=== PATIENT | male | born 1950 | race Caucasian/White ===

== ENCOUNTER 2017-04-04 19:06 | Emergency (ER) | payer OTHER ==
[~2017-04-04] VITALS: Ht 165.1 cm; Wt 66.5 kg
[~2017-04-04 19:06] MED LIST: ALBU8.5H3 INH; ASPI81TA3 PO; FLUC200T36 PO; LEVO500T72 PO; NICO-523 TRANSDERM; OMEP20CA16 PO; TAMS-14 PO
[2017-04-04 19:20] VITALS: Ht 165.1 cm; Wt 66.5 kg
[2017-04-04] MEDS ORDERED: HYDR-3011 PO (19:28)
[2017-04-04] MEDS ORDERED: TR1B60 TOP (19:28)
--- NOTE | 2017-04-04 19:37 | ERD ---
ER Documentation Chief Complaint Date/Time DATE: 04/04/17 TIME: 19:33 Chief Complaint rash/dryness bilateral arms from cement HPI 66-year-old male presents to emergency department for complaints of bilateral arm dryness rash and itching for years now, worst today. Patient also has it in the antecubital folds. Patient denies any fever or chills. Patient did not take any medications to help with symptoms. ROS All systems reviewed and are negative except as per history of present illness. Medications Home Meds Active Scripts Hydroxyzine Hcl* (Hydroxyzine Hcl*) 25 Mg Tablet, 25 MG PO Q8H Y for ITCHING, # 30 TAB Prov:JESSE GALVAN FOLDER TAPER OPERATOR 04/04/17 Triamcinolone Acetonide (Triamcinolone Acetonide) 0.1% - 60 Ml Lotion, 1 APPLIC TOP BID, #1 BOTTLE Prov:JESSE GALVAN FOLDER TAPER OPERATOR 04/04/17 Levofloxacin* (Levaquin*) 500 Mg Tablet, 500 MG PO DAILY, #5 TAB Prov:ARA CHAN 12/16/15 Nicotine* (Nicoderm* Patch) 1 Patch Patch, 1 PATCH TRANSDERM DAILY for 30 Days, PATCH Prov:ARA CHAN 12/16/15 Fluconazole* (Diflucan*) 200 Mg Tab, 200 MG PO DAILY, #7 TAB Prov:ARA CHAN 12/16/15 Tamsulosin Hcl* (Flomax*) 0.4 Mg Capsr, 0.4 MG PO HS, #30 CAP Prov:ARA CHAN 12/16/15 Reported Medications Aspirin* (Aspirin* Chew) 81 Mg Tab.chew, 81 MG PO DAILY, TAB.CHEW 12/10/15 Omeprazole* (Omeprazole*) 20 Mg Capsule.dr, 20 MG PO DAILY, #30 CAP 12/10/15 Albuterol Sulfate* (Proair HFA*) 8.5 Gm Hfa.aer.ad, 2 PUFF INH Q4H Y for WHEEZING AND SOB, #1 INHALER 12/10/15 Allergies Allergies: Coded Allergies: No Known Allergy (Unverified , 12/10/15) PMhx/Soc History of Surgery: Yes (skin disease and skin flap 2012, and hernia) Anesthesia Reaction: No Hx Neurological Disorder: No Hx Respiratory Disorders: Yes (right lung problem/ collapsed) Hx Cardiac Disorders: No Hx Psychiatric Problems: No Hx Miscellaneous Medical Probl: Yes (HEMRRHOIDS) Hx Alcohol Use: No Hx Substance Use: No Hx Tobacco Use: No FmHx Family History: No coronary disease, No diabetes, No other Physical Exam Vitals Vital Signs Date Time Temp Pulse Resp B/P Pulse Ox O2 Delivery O2 Flow Rate FiO2 04/04/17 19:20 97.5 92 20 132/75 100 Physical Exam GENERAL: The patient is well developed and appropriate for usual state of health, in no apparent distress. CHEST: Clear to auscultation bilaterally. There are no rales, wheezes or rhonchi. HEART: Regular rate and rhythm. No murmurs, clicks, rubs or gallops. No S3 or S4. ABDOMEN: Soft, nontender and nondistended. Good bowel sounds. No rebound or guarding. No gross peritonitis. No gross organomegaly or masses. No Garner sign or McBurney point tenderness. BACK: No midline or flank tenderness. EXTREMITIES: Equal pulses bilaterally. There is no peripheral clubbing, cyanosis or edema. No focal swelling or erythema. Full range of motion. Grossly neurovascularly intact. NEURO: Alert and oriented. Cranial nerves 2-12 intact. Motor strength in all 4 extremities with 5/5 strength. Sensation grossly intact. Normal speech and gait. SKIN: Noted dryness of the skin, plaques in the upper extremities. There is no apparent ecchymosis or petechia. The skin is warm and dry. HEMATOLOGIC AND LYMPHATIC: There is no evidence of excessive bruising or lymphedema. No gross cervical, axillary, or inguinal lymphadenopathy. Procedures/MDM Medical decision making: Patient's symptoms is likely consistent with eczema. No symptoms of any contagious rash at this time. No symptoms of sepsis at this time. No symptoms of any coagulopathies. No symptoms of any acute bacterial infection. Prescription was given for triamcinolone 1% cream, hydroxyzine, is advised to see epoxy specialist for further evaluation. Patient was advised to return to emergency department for any worsening symptoms Physician: Zoran. Stable. Departure Diagnosis: Primary Impression: Eczema Eczema type: unspecified Qualified Code: L30.9 - Eczema, unspecified type Condition: Stable Patient Instructions: Atopic Dermatitis (Eczema) [facility] Usted se polo hecho un examen mdico de control que le indica que no est en carlee condicin que requiera tratamiento urgente en el Departamento de Emergencia. Un estudio ms profundo y el tratamiento de olmedo condicin pueden esperar sin ningn riesgo hasta que usted sea atendida/o en el consultorio de olmedo mdico o carlee cl reese. Es responsabilidad suya arreglar carlee hanna para el seguimiento del tequila. MANEJO DE CONDICIONES NO URGENTES EN EL FUTURO 1) Si usted tiene un mdico de atencin primaria: Usted debera llamar a olmedo mdico de atencin primaria antes de venir al departamento de emergencia. Despus de las horas de consultorio, olmedo doctor o olmedo asociado/a est disponible por telfono. El mdico o enfermero de hammad en el servicio telefnico puede asesorarle por sunny medio para atender el problema, o tequila contrario se puede programar carlee hanna. 2) Si usted no tiene un mdico de atencin primaria: Llame al mdico o clnica de referencia que aparece abajo haile las horas de consultorio para hacer carlee hanna para que le vean. CLINICAS: [facility] [phone] [facility] [phone] [facility] [phone] [facility] [facility] [phone] [facility] [place] [phone] [facility]. [phone] [address] [facility]. [facility] ([place]) Usted se polo hecho un examen mdico de control que le indica que no est en carlee condicin que requiera tratamiento urgente en el Departamento de Emergencia. Un estudio ms profundo y el tratamiento de olmedo condicin pueden esperar sin ningn riesgo hasta que usted sea atendida/o en el consultorio de olmedo mdico o carlee cl reese. Es responsabilidad suya arreglar carlee hanna para el seguimiento del tequila. MANEJO DE CONDICIONES NO URGENTES EN EL FUTURO 1) Si usted tiene un mdico de atencin primaria: Usted debera llamar a olmedo mdico de atencin primaria antes de venir al departamento de emergencia. Despus de las horas de consultorio, olmedo doctor o olmedo asociado/a est disponible por telfono. El mdico o enfermero de hammad en el servicio telefnico puede asesorarle por sunny medio para atender el problema, o tequila contrario se puede programar carlee hanna. 2) Si usted no tiene un mdico de atencin primaria: Llame al mdico o condado institucions de referencia que aparece abajo haile las horas de consultorio para hacer carlee hanna para que le vean. SI USTED NO PUEDE PAGAR PARA [place] UN MEDICO puede ir a: [facility] [id number] [place] [address] [facility] [address] [place] [address] [facility] [address] [place] [address] [facility] [address] [place], [place] [id number] CUISIA,JESSE Fitzgerald NP Apr 04, 2017 19:37
== END 2017-04-04 19:30 | disposition home or self-care (01) ==
LOC: E/R 19:06
DX: L30.9 Dermatitis, unspecified (principal); Z79.82 Long term (current) use of aspirin
CPT/HCPCS: 99284

== ENCOUNTER 2017-10-04 15:39 | Inpatient (IN) | payer OTHER ==
[~2017-10-04] VITALS: Ht 170.2 cm; Wt 69.3 kg
[~2017-10-04 15:39] MED LIST changes: +HYDR-3011 PO; +TR1B60 TOP
[2017-10-04] MEDS ORDERED: SUCR1TAB56 PO (20:03)
[2017-10-04] MEDS ORDERED: MONT10TA24 PO (20:03)
[2017-10-04] MEDS ORDERED: FLUT1AER INHALATION (20:04)
--- NOTE | 2017-10-04 20:07 | ERD ---
ER Documentation Chief Complaint Chief Complaint cough x 3 days h/o rt lung surgery HPI This is a 67-year-old male with a past medical history of COPD, history of pneumothorax several years ago requiring chest tube placement, GERD, BPH who is presenting with a cough and congestion for 3 days. The patient sounds very congested, but he does not endorse a productive cough. He has not had any sputum production. He does endorse subjective fever and chills at home. He reports generalized body aches as well. The patient has had no headache or vision changes. The patient does not endorse neck or back pain. The patient denies lightheadedness or dizziness. The patient has had no chest pain. The patient denies nausea or vomiting. The patient denies abdominal pain or changes to bowel movements or urination. The patient has had no focal deficits. The patient has had no weakness or numbness or tingling to the face or extremities. ROS All systems reviewed and are negative except as per history of present illness. Medications Home Meds Active Scripts Tamsulosin Hcl* (Flomax*) 0.4 Mg Capsr, 0.4 MG PO HS, #30 CAP Prov:ARA CHAN 12/16/15 Reported Medications Fluticasone-Vilanterol (Breo Ellipta Inhaler) 100-25 Mcg/Actuation Aer.pow.ba, 1 PUFF INHALATION DAILY, #1 INHALER 10/04/17 Montelukast Sodium* (Montelukast Sodium*) 10 Mg Tablet, 10 MG PO QHS, #30 TAB 10/04/17 Sucralfate* (Carafate*) 1 Gm Tab, 1 GM PO BID, TAB 10/04/17 Discontinued Reported Medications Aspirin* (Aspirin* Chew) 81 Mg Tab.chew, 81 MG PO DAILY, TAB.CHEW 12/10/15 Omeprazole* (Omeprazole*) 20 Mg Capsule.dr, 20 MG PO DAILY, #30 CAP 12/10/15 Albuterol Sulfate* (Proair HFA*) 8.5 Gm Hfa.aer.ad, 2 PUFF INH Q4H Y for WHEEZING AND SOB, #1 INHALER 12/10/15 Discontinued Scripts Hydroxyzine Hcl* (Hydroxyzine Hcl*) 25 Mg Tablet, 25 MG PO Q8H Y for ITCHING, # 30 TAB Prov:JESSE GALVAN NP 04/04/17 Triamcinolone Acetonide (Triamcinolone Acetonide) 0.1% - 60 Ml Lotion, 1 APPLIC TOP BID, #1 BOTTLE Prov:ADELADALEJESSE JUAN NP 04/04/17 Levofloxacin* (Levaquin*) 500 Mg Tablet, 500 MG PO DAILY, #5 TAB Prov:REALCHRISTOSTEMITOPEARA 12/16/15 Nicotine* (Nicoderm* Patch) 1 Patch Patch, 1 PATCH TRANSDERM DAILY for 30 Days, PATCH Prov:REALCHRISTOSTEMITOPEARA 12/16/15 Fluconazole* (Diflucan*) 200 Mg Tab, 200 MG PO DAILY, #7 TAB Prov:REALCHRISTOSTEMITOPEJOSHUAARA 12/16/15 Allergies Allergies: Coded Allergies: No Known Allergy (Unverified , 10/04/17) PMhx/Soc History of Surgery: Yes (skin disease and skin flap 2012, and hernia) Anesthesia Reaction: No Hx Neurological Disorder: No Hx Respiratory Disorders: Yes (right lung problem/ collapsed) Hx Cardiac Disorders: No Hx Psychiatric Problems: No Hx Miscellaneous Medical Probl: Yes (HEMORRHOIDS) Hx Alcohol Use: No Hx Substance Use: No Hx Tobacco Use: Yes (5 cigarette a day) Smoking Status: Current every day smoker FmHx Family History: No coronary disease, No diabetes Physical Exam Vitals Vital Signs Date Time Temp Pulse Resp B/P Pulse Ox O2 Delivery O2 Flow Rate FiO2 10/04/17 21:00 98.1 90 24 120/57 86 Room Air 10/04/17 20:36 84 24 93 21 10/04/17 20:26 Nasal Cannula 2 10/04/17 19:47 97.6 76 22 110/54 94 Room Air 10/04/17 15:46 98.0 81 18 109/52 94 Physical Exam Const: No apparent distress, well-developed, well-nourished Head: Normocephalic, Atraumatic Eyes: Normal Conjunctiva. Extraocular movements intact. Pupils equal, round and reactive to light ENT: Normal External Ears, Nose and Mouth. Neck: Full range of motion. No meningismus. Resp: Bilateral diffuse wheezes, tachypnea, hypoxic to 88% on room air, no rales or rhonchi Cardio: Regular rate and rhythm. No murmurs, rubs or gallops Abd: Soft, non tender, non distended. Normal bowel sounds Skin: No petechiae or rashes Back: No midline tenderness. No CVA tenderness Ext: No cyanosis, or edema Neur: Awake and alert, oriented 4. Cranial nerves intact. No facial droop. Normal strength, sensation and coordination. Psych: Normal Mood and Affect Result Diagram: 10/04/17202410/04/172024 Results 24 hrs Laboratory Tests Test 10/04/17 20:25 White Blood Count 8.610^3/ul Red Blood Count 4.4610^6/ul Hemoglobin 12.6g/dl Hematocrit 37.8% Mean Corpuscular Volume 84.8fl Mean Corpuscular Hemoglobin 28.3pg Mean Corpuscular Hemoglobin Concent 33.3g/dl Red Cell Distribution Width 13.8% Platelet Count 80470^3/UL Mean Platelet Volume 10.0fl Neutrophils % 78.7% Lymphocytes % 14.0% Monocytes % 5.3% Eosinophils % 1.1% Basophils % 0.4% Nucleated Red Blood Cells % 0.0/100WBC Neutrophils # 6.810^3/ul Lymphocytes # 1.210^3/ul Monocytes # 0.510^3/ul Eosinophils # 0.110^3/ul Basophils # 0.010^3/ul Nucleated Red Blood Cells # 0.010^3/ul Prothrombin Time 14.1Sec Prothrombin Time Ratio 1.1 INR International Normalized Ratio 1.08 Activated Partial Thromboplast Time 60.8Sec Sodium Level 136mmol/L Potassium Level 3.6mmol/L Chloride Level 103mmol/L Carbon Dioxide Level 25mmol/L Anion Gap 12 Blood Urea Nitrogen 13mg/dl Creatinine 0.88mg/dl Glucose Level 114mg/dl Calcium Level 8.4mg/dl Troponin I < 0.012ng/ml Current Medications Medications (Trade) Dose Ordered Sig/Ant Route PRN Reason Start Time Stop Time Status Last Admin Dose Admin Sodium Chloride (NS) 1,000 ml @ 1,000 mls/hr Q1H STAT IV 10/04/17 20:21 10/04/17 21:20 DC 10/04/17 20:33 Ipratropium Jenn[place] (Atrovent 0.02% (Neb)) 1.5 mg ONCE STAT INH 10/04/17 20:21 10/04/17 20:23 DC 10/04/17 20:36 Albuterol (Proventil 0.5% (Neb)) 15 mg ONCE STAT INH 10/04/17 20:21 10/04/17 20:23 DC 10/04/17 20:36 Methylprednisolone Sodium Succinate 125 mg 125 mg ONCE STAT IV 10/04/17 20:21 10/04/17 20:23 DC 10/04/17 20:32 Levofloxacin/ Dextrose (Levaquin 750 Mg/ D5W 150 ml (Pmx)) 150 ml @ 100 mls/hr ONCE STAT IVPB 10/04/17 22:35 10/05/17 00:04 10/04/17 22:53 Procedures/MDM MDM The patient's presentation warrants further investigation. I am concerned of a COPD exacerbation with a possible infectious etiology. This will need to be further evaluated. The patient does have bilateral breath sounds, and I have less suspicion for pneumothorax. I have higher suspicion for COPD exacerbation and pneumonia over a PE. The patient does not endorse chest pain, and I have less suspicion for acute coronary syndrome. The patient does not have symptoms of pericarditis or pericardial effusion. I do not hear decreased breath sounds at the bases, and I have decreased suspicion for pleural effusion. Pulmonary edema is a possibility, the patient does not have heart failure and I hear wheezes on exam of the posterior rales. The patient does not have signs or symptoms of esophageal tear or perforation. I have decreased suspicion for thoracic aortic aneurysm or rupture or dissection. LABS The patient's blood work was obtained and reviewed. The patient's CBC shows no leukocytosis and no left shift. The patient is afebrile and does not appear systemically ill. I do not suspect a systemic infection, and I do not suspect sepsis, but this does not decrease my suspicion of an infectious etiology of his symptoms based on his overall presentation. The patient is mildly anemic today, but this does not need to be emergently treated. The patient's platelet count is unremarkable. The patient's CMP shows no signs of metabolic or electrolyte emergencies. The patient has unremarkable renal and hepatic function testing. The patient's troponin is negative. The patient's INR is unremarkable. EKG EKG read by me: Rate/Rhythm: Regular rate and rhythm at a rate of 85 beats per minute Intervals: Normal [place]: Normal Impression: No evidence of ischemia or arrhythmia IMAGING CXR FINDINGS: Heart is not enlarged. Mediastinum is not widened. No hilar masses seen. There are diffuse increased interstitial and fine reticular nodular lung markings. No effusion or pneumothorax is seen. IMPRESSION: Question interstitial pneumonia versus interstitial edema. Electronically viewed and signed by .Semaj Muro MD, MD on 10/04/2017 21: 24 TREATMENT/DISPOSITION I am concerned of interstitial pneumonia given his presentation. I suspect a COPD exacerbation. The patient was given Levaquin in the emergency department. He was also given nebulized albuterol and ipratropium in addition to Solu- Medrol. [place] through assessment, the patient was evaluated off oxygen. He desaturated to 86%. He is not on oxygen at home, and I do find this to be concerning and something that warrants inpatient evaluation and management. At this time, I feel that the patient requires admission for further evaluation and management. The patient will be admitted to Panel in accordance with the patient's insurance. The patient was accepted by Dr. Rees at 12:05AM on October 05, 2017. Disclaimer: Inadvertent spelling and grammatical errors are likely due to EHR/ dictation software use and do not reflect on the overall quality of patient care. Note that the electronic time recorded on this note does not necessarily reflect the actual time of the patient encounter. Departure Diagnosis: Primary Impression: Interstitial pneumonia Additional Impressions: Cough COPD exacerbation Hypoxia Anemia Anemia type: unspecified type Qualified Code: D64.9 - Anemia, unspecified type Condition: CHUCK Johnson MD Oct 04, 2017 20:07
[2017-10-04] MEDS ORDERED: IPRATROPIUM (NEB) 0.5 MG/2.5 ML AMP INH STA (20:21)
[2017-10-04] MEDS ORDERED: SOD CHLORIDE 0.9% 1,000 ML IV STA (20:21)
[2017-10-04] MEDS ORDERED: METHYLPREDNISOLONE 125 MG INJ IV STA (20:21)
[2017-10-04] MEDS ORDERED: ALBUTEROL 0.5% (NEB) 2.5 MG/0.5 ML AMP INH STA (20:21)
[2017-10-04 20:39] LABS: BASOPHILS % 0.4 % (0.0-2.0); EOSINOPHILS # 0.1 10^3/ul (0.0-0.5); EOSINOPHILS % 1.1 % (0.0-7.0); HEMATOCRIT 37.8 % (42.0-52.0); HEMOGLOBIN 12.6 g/dl (14.0-18.0); LYMPHOCYTES # 1.2 10^3/ul (0.8-2.9); MEAN CORPUSCULAR HEMOGLOBIN 28.3 pg (29.0-33.0); MEAN CORPUSCULAR HGB CONC 33.3 g/dl (32.0-37.0); MEAN CORPUSCULAR VOLUME 84.8 fl (82.0-101.0); MONOCYTE # 0.5 10^3/ul (0.3-0.9); MONOCYTES % 5.3 % (0.0-11.0); NEUTROPHIL # 6.8 10^3/ul (1.6-7.5); NEUTROPHILS % 78.7 % (39.0-77.0); PLATELET COUNT 202 10^3/UL (140-415); RED BLOOD COUNT 4.46 10^6/ul (4.70-6.10); RED CELL DISTRIBUTION WIDTH 13.8 % (11.5-14.5); WHITE BLOOD COUNT 8.6 10^3/ul (4.8-10.8)
[2017-10-04 21:02] LABS: INR 1.08; PROTIME 14.1 Sec (11.9-14.9); PT RATIO 1.1
[2017-10-04 21:04] LABS: ANION GAP 12 (8-16); BLOOD UREA NITROGEN 13 mg/dl (7-20); CALCIUM 8.4 mg/dl (8.4-10.2); CARBON DIOXIDE 25 mmol/L (21-31); CHLORIDE 103 mmol/L (97-110); CREATININE 0.88 mg/dl (0.61-1.24); GLUCOSE 114 mg/dl (70-220); PARTIAL THROMBOPLASTIN TIME 60.8 Sec (25.0-35.0); POTASSIUM 3.6 mmol/L (3.5-5.1); SODIUM 136 mmol/L (135-144)
[2017-10-04 21:19] LABS: TROPONIN-I < 0.012 ng/ml (0.00-0.12)
--- NOTE | 2017-10-04 21:24 | RADRPT ---
PROCEDURE: XR Chest. CLINICAL INDICATION: Shortness of breath TECHNIQUE: Frontal chest x-ray was obtained. COMPARISON: Chest x-ray December 15, 2015 FINDINGS: Heart is not enlarged. Mediastinum is not widened. No hilar masses seen. There are diffuse increased interstitial and fine reticular nodular lung markings. No effusion or pneumothorax is seen. IMPRESSION: Question interstitial pneumonia versus interstitial edema. .Semaj Muro MD, MD Date Time Electronically viewed and signed by .Semaj Muro MD, on 10/04/2017 21:24 .A/
[2017-10-04] MEDS ORDERED: LEVOFLOXACIN 750MG/D5W (PMX) 150 ML IVPB STA (22:35)
[2017-10-05] MEDS ORDERED: ACETAMINOPHEN 325 MG TAB PO PRN ×2 (00:30→06:00)
[2017-10-05] MEDS ORDERED: ONDANSETRON 4 MG INJ IV PRN ×2 (00:30→06:00)
[2017-10-05] MEDS ORDERED: morphine 2 MG INJ IV PRN (06:00)
[2017-10-05] MEDS ORDERED: ALBUTEROL/IPRATROPIUM (NEB) 3 ML AMP HHN PRN (06:00)
[2017-10-05] MEDS ORDERED: NACL 0.9% 3 ML SYG IV SCH (06:00)
[2017-10-05 07:00] VITALS: TEMP 98.3
--- NOTE | 2017-10-05 08:55 | HP ---
Date/Time of Note Date/Time of Note DATE: 10/05/17 TIME: 08:48 Assessment/Plan VTE Prophylaxis VTE Prophylaxis Intervention: heparin Assessment/Plan Assessment/Plan 1. COPD exacerbation, was likely early developing pneumonia vs URI -Supplemental oxygen, bronchodilators, steroid and IV antibiotic -Will order respiratory culture 2. Shortness of breath, most likely secondary to above -Will check a 2D echo to evaluate for possible CHF otherwise see #1 for plan of care 3. Nicotine dependence -Advised about smoking cessation -Nicotine patch while in-house HPI/ROS Admit Date/Time Admit Date/Time Hx of Present Illness This is a 67-year-old male with history of COPD, hemothorax, recurrent pneumonia , nicotine dependence who presented to the ER complaining of shortness of breath and cough 3 days. He said the symptoms started about 3 days ago and has been progressively getting worse. He denied chest pain, fever/chills, nausea/vomiting, abdominal pain or urinary symptoms. He said he ran out of his inhalers for quite some time now and was unable to use them in the last 3 days. When he presented to the ER, chest x-ray showed Questionable interstitial pneumonia versus interstitial edema. Influenza A and B were negative. Labs shows a hemoglobin of 12.6 otherwise CBC and BMP within normal limits PMH/Family/Social Social History Smoking Status: Current every day smoker Exam/Review of Systems Vital Signs Vitals Vital Signs Date Time Temp Pulse Resp B/P Pulse Ox O2 Delivery O2 Flow Rate FiO2 10/05/17 07:00 98.3 61 20 100/60 96 Nasal Cannula 2.0 10/04/17 20:36 21 Exam Constitutional: alert, oriented, well developed Head: atraumatic, normocephalic Eyes: EOMI, PERRL Respiratory: other (Minimally decreased breath sounds at the bases bilaterally) Cardiovascular: nl pulses, regular rate and rhythm Gastrointestinal: non-tender, soft Extremities: normal pulses Labs Result Diagram: 10/04/17202410/04/172024 Medications Medications Current Medications Ondansetron HCl (Zofran Inj) 4 mg Q6H PRN IV NAUSEA AND/OR VOMITING; Start at 06:00 Acetaminophen (Tylenol Tab) 650 mg Q6H PRN PO PAIN LEVEL 1-3 OR FEVER; Start 10/05/17 at 06:00 Morphine Sulfate (morphine) 2 mg Q4H PRN IV SEVERE PAIN LEVEL 7-10; Start at 06:00 Enoxaparin Sodium (Lovenox) 40 mg DAILY SC ; Start 10/05/17 at 09:00 Montelukast Sodium (Singulair) 10 mg QHS PO ; Start 10/05/17 at 21:00 Sucralfate (Carafate) 1 gm BID PO ; Start 10/05/17 at 09:00 Tamsulosin HCl (Flomax) 0.4 mg HS PO ; Start 10/05/17 at 21:00 Miscellaneous Information 1 puff 1 puff DAILY INHALATION ; Start 10/05/17 at 09 :00; Status UNV Levofloxacin/ Dextrose (Levaquin 500mg/ D5W 100 ml (Pmx)) 100 ml @ 100 mls/hr DAILY IVPB ; Start 10/05/17 at 09:00 ZIA ALLRED MD Oct 05, 2017 08:55
[2017-10-05] MEDS ORDERED: NON-FORMULARY/PATIENT OWN MED (Fluticasone-Vilanterol (Breo Ellipta Inhaler) 1 PUFF) INHALATION SCH (09:00)
[2017-10-05] MEDS ORDERED: METHYLPREDNISOLONE 125 MG INJ IV SCH (09:00)
[2017-10-05 09:21] LABS: HEMATOCRIT 35.8 % (42.0-52.0); LYMPHOCYTES # 0.6 10^3/ul (0.8-2.9); MEAN CORPUSCULAR HEMOGLOBIN 28.4 pg (29.0-33.0); MEAN CORPUSCULAR HGB CONC 33.5 g/dl (32.0-37.0); MEAN CORPUSCULAR VOLUME 84.6 fl (82.0-101.0); MONOCYTE # 0.2 10^3/ul (0.3-0.9); MONOCYTES % 2.5 % (0.0-11.0); NEUTROPHIL # 6.1 10^3/ul (1.6-7.5); NEUTROPHILS % 88.1 % (39.0-77.0); PLATELET COUNT 192 10^3/UL (140-415); RED BLOOD COUNT 4.23 10^6/ul (4.70-6.10); RED CELL DISTRIBUTION WIDTH 14.1 % (11.5-14.5); WHITE BLOOD COUNT 6.9 10^3/ul (4.8-10.8)
[2017-10-05] MEDS: LEVOFLOXACIN 500MG/D5W (PMX) 100 ML IVPB SCH (09:46)
[2017-10-05] MEDS: ENOXAPARIN 40 MG/0.4 ML SYG SC SCH (09:46)
[2017-10-05] MEDS: SUCRALFATE 1 GM TAB PO SCH ×2 (09:47→21:46)
[2017-10-05 09:51] LABS: ALBUMIN 3.2 g/dl (3.3-4.9); ALBUMIN/GLOBULIN RATIO 0.96; BILIRUBIN,INDIRECT 0.1 mg/dl (0-1.1); BILIRUBIN,TOTAL 0.1 mg/dl (0.2-1.3); CALCIUM 8.6 mg/dl (8.4-10.2); CREATININE 0.72 mg/dl (0.61-1.24); MAGNESIUM 1.9 mg/dl (1.7-2.5); PHOSPHORUS 4.7 mg/dl (2.5-4.9); POTASSIUM 4.3 mmol/L (3.5-5.1); TOTAL PROTEIN 6.5 g/dl (6.1-8.1)
[2017-10-05 12:12] VITALS: Ht 170.2 cm; Wt 69.3 kg
[2017-10-05 12:17] VITALS: BP 115/57; PULSE 62; RESP 20
[2017-10-05] MEDS ORDERED: FUROSEMIDE 20 MG INJ IV ONE (13:00)
--- NOTE | 2017-10-05 13:01 | PN ---
Date/Time of Note Date/Time of Note DATE: 10/05/17 TIME: 13:01 Assessment/Plan VTE Prophylaxis VTE Prophylaxis Intervention: ambulation, SCD's Assessment/Plan Chief Complaint/Hosp Course Subjective Patient still has cough, however feeling better Objective Physical exam General: Patient is laying in bed and answers questions appropriately Mentation: Patient is alert and oriented 4, Head: Normocephalic atraumatic Eyes: EOMI, pupils reactive to light Neck: Supple, nontender, midline Respiratory: Coarse to auscultation bilaterally Cardiovascular: regular rate, no obvious murmurs Gastrointestinal: non-tender to palpation, bowel sounds heard. Neurological: Moves all extremities spontaneously Skin: No new skin lesions Assessment and plan Shortness of breath and cough -Likely COPD exacerbation versus CHF versus early pneumonia -Antibiotics and duo nebs with steroids -BNP mildly elevated, will obtain echocardiogram and give one-time Lasix, patient has no apparent history of CHF COPD exacerbation -Although might be might multifactorial, COPD exacerbation with patient running out of inhalers likely contributes Nicotine dependence -Nicotine patch as needed Medical noncompliance -Continue home meds as needed Anemia -Mild, monitor for now Disposition -Follow-up with echocardiogram, continue steroids, continue antibiotics Problems: Exam/Review of Systems Vital Signs Vitals Vital Signs Date Time Temp Pulse Resp B/P Pulse Ox O2 Delivery O2 Flow Rate FiO2 10/05/17 12:17 97.3 62 20 115/57 92 Nasal Cannula 10/05/17 10:42 2.0 10/04/17 20:36 21 Results Result Diagram: 10/05/17 0910 10/05/17 0910 Results 24 hrs Laboratory Tests Test 10/04/17 20:25 10/05/17 09:10 White Blood Count 8.6 # 6.9 Red Blood Count 4.46 L 4.23 L Hemoglobin 12.6 L 12.0 L Hematocrit 37.8 L 35.8 L Mean Corpuscular Volume 84.8 84.6 Mean Corpuscular Hemoglobin 28.3 L 28.4 L Mean Corpuscular Hemoglobin Concent 33.3 33.5 Red Cell Distribution Width 13.8 14.1 Platelet Count 202 192 Mean Platelet Volume 10.0 10.0 Neutrophils % 78.7 H 88.1 H Lymphocytes % 14.0 L 9.0 L Monocytes % 5.3 2.5 Eosinophils % 1.1 0.0 Basophils % 0.4 0.0 Nucleated Red Blood Cells % 0.0 0.0 Neutrophils # 6.8 6.1 Lymphocytes # 1.2 0.6 L Monocytes # 0.5 0.2 L Eosinophils # 0.1 0.0 Basophils # 0.0 0.0 Nucleated Red Blood Cells # 0.0 0.0 Prothrombin Time 14.1 Prothrombin Time Ratio 1.1 INR International Normalized Ratio 1.08 Activated Partial Thromboplast Time 60.8 H Sodium Level 136 140 Potassium Level 3.6 4.3 Chloride Level 103 108 Carbon Dioxide Level 25 23 Anion Gap 12 13 Blood Urea Nitrogen 13 12 Creatinine 0.88 0.72 Glucose Level 114 122 Calcium Level 8.4 8.6 Troponin I < 0.012 Phosphorus Level 4.7 Magnesium Level 1.9 Total Bilirubin 0.1 L Direct Bilirubin 0.00 Indirect Bilirubin 0.1 Aspartate Amino Transf (AST/SGOT) 48 H Alanine Aminotransferase (ALT/SGPT) 31 Alkaline Phosphatase 69 B-Type Natriuretic Peptide 666 H Total Protein 6.5 Albumin 3.2 L Globulin 3.30 H Albumin/Globulin Ratio 0.96 Medications Medications Current Medications Ondansetron HCl (Zofran Inj) 4 mg Q6H PRN IV NAUSEA AND/OR VOMITING; Start at 06:00 Acetaminophen (Tylenol Tab) 650 mg Q6H PRN PO PAIN LEVEL 1-3 OR FEVER; Start 10/05/17 at 06:00 Morphine Sulfate (morphine) 2 mg Q4H PRN IV SEVERE PAIN LEVEL 7-10; Start at 06:00 Enoxaparin Sodium (Lovenox) 40 mg DAILY SC Last administered on 10/05/17 09: 46; Admin Dose 40 MG; Start 10/05/17 at 09:00 Montelukast Sodium (Singulair) 10 mg QHS PO ; Start 10/05/17 at 21:00 Sucralfate (Carafate) 1 gm BID PO Last administered on 10/05/17 09:47; Admin Dose 1 GM; Start 10/05/17 at 09:00 Tamsulosin HCl (Flomax) 0.4 mg HS PO ; Start 10/05/17 at 21:00 Miscellaneous Information 1 puff 1 puff DAILY INHALATION ; Start 10/05/17 at 09 :00; Status UNV Levofloxacin/ Dextrose (Levaquin 500mg/ D5W 100 ml (Pmx)) 100 ml @ 100 mls/hr DAILY IVPB Last administered on 10/05/17t 09:46; Admin Dose 100 MLS/HR; Start 10/05/17 at 09:00 Methylprednisolone Sodium Succinate (Solu-Medrol) 60 mg Q6 IV ; Start 10/05/17 at 12:00 Furosemide (Lasix) 20 mg ONCE ONCE IV ; Start 10/05/17 at 13:00; Stop at 13:01; Status UNV BRIDGETT MONROY Oct 05, 2017 13:01
[2017-10-05] MEDS: ALBUTEROL/IPRATROPIUM (NEB) 3 ML AMP HHN SCH ×2 (14:52→20:29)
[2017-10-05] MEDS: METHYLPREDNISOLONE 125 MG INJ IV SCH ×3 (15:04→21:47)
[2017-10-05 19:45] VITALS: BP 95/51; PULSE 68; RESP 20
[2017-10-05] MEDS: TAMSULOSIN (SR) 0.4 MG CAP PO SCH (21:46)
[2017-10-05] MEDS: MONTELUKAST 10 MG TAB PO SCH (21:46)
[2017-10-05 23:21] VITALS: BP 105/58; PULSE 64; RESP 20
[2017-10-06] MEDS: METHYLPREDNISOLONE 125 MG INJ IV SCH ×4 (06:09→23:43)
[2017-10-06 06:26] LABS: BASOPHILS % 0.1 % (0.0-2.0); HEMOGLOBIN 11.8 g/dl (14.0-18.0); LYMPHOCYTES % 6.9 % (15.0-51.0); MEAN CORPUSCULAR HEMOGLOBIN 27.6 pg (29.0-33.0); MEAN CORPUSCULAR HGB CONC 32.8 g/dl (32.0-37.0); MEAN CORPUSCULAR VOLUME 84.1 fl (82.0-101.0); MEAN PLATELET VOLUME 10.5 fl (7.4-10.4); MONOCYTE # 0.4 10^3/ul (0.3-0.9); MONOCYTES % 2.8 % (0.0-11.0); NEUTROPHILS % 89.7 % (39.0-77.0); PLATELET COUNT 211 10^3/UL (140-415); RED BLOOD COUNT 4.28 10^6/ul (4.70-6.10); RED CELL DISTRIBUTION WIDTH 13.8 % (11.5-14.5); WHITE BLOOD COUNT 14.5 10^3/ul (4.8-10.8)
[2017-10-06 07:11] LABS: CALCIUM 8.8 mg/dl (8.4-10.2); CREATININE 0.79 mg/dl (0.61-1.24); PHOSPHORUS 3.6 mg/dl (2.5-4.9); POTASSIUM 4.1 mmol/L (3.5-5.1)
[2017-10-06] MEDS: ALBUTEROL/IPRATROPIUM (NEB) 3 ML AMP HHN SCH ×3 (08:13→20:06)
[2017-10-06 08:30] VITALS: BP 102/54; RESP 24
[2017-10-06] MEDS: LEVOFLOXACIN 500MG/D5W (PMX) 100 ML IVPB SCH (09:32)
[2017-10-06] MEDS: SUCRALFATE 1 GM TAB PO SCH ×2 (09:33→21:14)
[2017-10-06] MEDS: ENOXAPARIN 40 MG/0.4 ML SYG SC SCH (09:44)
--- NOTE | 2017-10-06 13:01 | PN ---
Date/Time of Note Date/Time of Note DATE: 10/06/17 TIME: 13:00 Assessment/Plan VTE Prophylaxis VTE Prophylaxis Intervention: SCD's Lines/Catheters IV Catheter Type (from Nrs): Saline Lock Assessment/Plan Chief Complaint/Hosp Course Subjective Patient still has cough, however feeling better Objective Physical exam General: Patient is laying in bed and answers questions appropriately Mentation: Patient is alert and oriented 4, Head: Normocephalic atraumatic Eyes: EOMI, pupils reactive to light Neck: Supple, nontender, midline Respiratory: Coarse to auscultation bilaterally Cardiovascular: regular rate, no obvious murmurs Gastrointestinal: non-tender to palpation, bowel sounds heard. Neurological: Moves all extremities spontaneously Skin: No new skin lesions Assessment and plan Shortness of breath and cough -Likely COPD exacerbation versus CHF versus early pneumonia -Antibiotics and duo nebs with steroids -BNP mildly elevated, will obtain echocardiogram and give one-time Lasix, patient has no apparent history of CHF -still pending echo read COPD exacerbation -Although might be might multifactorial, COPD exacerbation with patient running out of inhalers likely contributes Nicotine dependence -Nicotine patch as needed Medical noncompliance -Continue home meds as needed Anemia -Mild, monitor for now Disposition -Follow-up with echocardiogram, continue steroids, continue antibiotics -repeat XRAY today, 2 view Problems: Exam/Review of Systems Vital Signs Vitals Vital Signs Date Time Temp Pulse Resp B/P Pulse Ox O2 Delivery O2 Flow Rate FiO2 10/06/17 08:30 98.0 24 102/54 95 Nasal Cannula 3.0 10/06/17 08:13 62 10/04/17 20:36 21 Intake and Output 10/05/17 10/05/17 10/06/17 14:59 22:59 06:59 Output Total 200 ml 250 ml Balance -200 ml -250 ml Results Result Diagram: 10/06/17 0557 10/06/17 0557 Results 24 hrs Laboratory Tests Test 10/06/17 05:57 White Blood Count 14.5 #H Red Blood Count 4.28 L Hemoglobin 11.8 L Hematocrit 36.0 L Mean Corpuscular Volume 84.1 Mean Corpuscular Hemoglobin 27.6 L Mean Corpuscular Hemoglobin Concent 32.8 Red Cell Distribution Width 13.8 Platelet Count 211 Mean Platelet Volume 10.5 H Neutrophils % 89.7 H Lymphocytes % 6.9 L Monocytes % 2.8 Eosinophils % 0.0 Basophils % 0.1 Nucleated Red Blood Cells % 0.0 Neutrophils # 13.0 H Lymphocytes # 1.0 Monocytes # 0.4 Eosinophils # 0.0 Basophils # 0.0 Nucleated Red Blood Cells # 0.0 Sodium Level 141 Potassium Level 4.1 Chloride Level 105 Carbon Dioxide Level 27 Anion Gap 13 Blood Urea Nitrogen 18 Creatinine 0.79 Glucose Level 136 Calcium Level 8.8 Phosphorus Level 3.6 Magnesium Level 2.0 Medications Medications Current Medications Ondansetron HCl (Zofran Inj) 4 mg Q6H PRN IV NAUSEA AND/OR VOMITING; Start at 06:00 Acetaminophen (Tylenol Tab) 650 mg Q6H PRN PO PAIN LEVEL 1-3 OR FEVER; Start 10/05/17 at 06:00 Morphine Sulfate (morphine) 2 mg Q4H PRN IV SEVERE PAIN LEVEL 7-10; Start at 06:00 Enoxaparin Sodium (Lovenox) 40 mg DAILY SC Last administered on 10/06/17 09: 44; Admin Dose 40 MG; Start 10/05/17 at 09:00 Montelukast Sodium (Singulair) 10 mg QHS PO Last administered on 10/05/17 21: 46; Admin Dose 10 MG; Start 10/05/17 at 21:00 Sucralfate (Carafate) 1 gm BID PO Last administered on 10/06/17 09:33; Admin Dose 1 GM; Start 10/05/17 at 09:00 Tamsulosin HCl (Flomax) 0.4 mg HS PO Last administered on 10/05/17 21:46; Admin Dose 0.4 MG; Start 10/05/17 at 21:00 Miscellaneous Information 1 puff 1 puff DAILY INHALATION ; Start 10/05/17 at 09 :00; Status UNV Levofloxacin/ Dextrose (Levaquin 500mg/ D5W 100 ml (Pmx)) 100 ml @ 100 mls/hr DAILY IVPB Last administered on 10/06/17 09:32; Admin Dose 100 MLS/HR; Start 10/05/17 at 09:00 Methylprednisolone Sodium Succinate (Solu-Medrol) 60 mg Q6 IV Last administered on 10/06/17 06:09; Admin Dose 60 MG; Start 10/05/17 at 12:00 BRIDGETT MONROY Oct 06, 2017 13:01
[2017-10-06 14:00] VITALS: BP 114/55; PULSE 66; RESP 20
--- NOTE | 2017-10-06 15:29 | RADRPT ---
PROCEDURE: XR Chest. CLINICAL INDICATION: Cough TECHNIQUE: Single AP view of the chest was obtained COMPARISON: 10/04/2017 FINDINGS: Patchy opacities in the right and left lungs. Heart is normal in size. No acute osseous abnormality. IMPRESSION: Bilateral patchy opacities, greater on the right, compatible with pneumonia or edema. Overall improv ed aeration. RPTAT: PP Physician Sandip Date Time Electronically viewed and signed by Ayah Mccabe Physician on 10/06/2017 15:29 RI/
[2017-10-06 17:37] VITALS: BP 108/56; PULSE 68; RESP 22
[2017-10-06 18:30] VITALS: BP 106/53; PULSE 67; RESP 22
--- NOTE | 2017-10-06 18:48 | RADRPT ---
Echocardiogram Report Patient Name: ARTHUR HALE Gender: Male Date: 1950 Study Date: 05-Oct-2017 Ticket Attendant: Alyssa RUST Location: [facility] Ref. Physician: BRIDGETT MONROY Quality: Adequate Procedures: Transthoracic echocardiogram with complete 2D, M-Mode, and doppler examination. Indications: Congestive Heart Failure. 2D/M Mode Doppler Measurement Value Normal Ranges Measurement Value Normal Ranges LVIDd 2D 4.3 3.5 - 5.6 cm AV Peak Mikhail 1.6 m/sec LVIDs 2D 2.7 2.1 - 4.1 cm AV Peak PG 10.0 mmHg FS 2D 36.1 % LVOT Peak Mikhail 1.0 m/sec LVPWd 2D 1.3 0.6 - 1.1 cm LVOT Peak PG 4.0 mmHg IVSd 2D 1.3 0.6 - 1.1 cm MV E Peak Mikhail 0.9 m/sec IVS/LVPW 2D 1.0 MV A Peak Mikhail 0.8 m/sec AoR Diam 2D 2.7 2.0 - 3.7 cm MV E/A 1.2 LA/Ao 2D 1 0 - 1 MV Decel Time 218 msec EDV 2D 79.0 cm3 MV E/A 1.2 ESV 2D 20.6 cm3 TR Peak Mikhail 2.7 m/sec LA Dimen 2D 4.0 2.3 - 4.0 cm TR Peak PG 29.0 mmHg RVSP 32.0 mmHg Findings Left Ventricle: Normal left ventricular systolic function. Normal left ventricular cavity size. Mild concentric left ventricular hypertrophy. Ejection fraction is visually estimated at 65 %. Tissue Doppler/Mitral Doppler indices are consistent with impaired relaxation (Stage I diastolic dysfunction). Right Ventricle: Normal right ventricular size. Normal right ventricular systolic function. Left Atrium: The left atrium is normal in size. Right Atrium: The right atrium is normal in size. Mitral Valve: Mild mitral leaflet calcification. Mild mitral annular calcification. Mild mitral valve regurgitation. Aortic Valve: Normal appearance of the aortic valve. No significant aortic stenosis or insufficiency. Tricuspid Valve: Normal appearance of the tricuspid valve. Estimated peak PA systolic pressure 32 mmHg. There is mild tricuspid regurgitation. Pulmonic Valve: Pulmonic valve not well visualized. There is mild pulmonic regurgitation. Pericardium: Normal pericardium with no significant pericardial effusion. Aorta: Normal aortic root. IVC: Normal size and normal respiratory collapse consistent with normal right atrial pressure. Conclusions 1.Normal left ventricular systolic function. Normal left ventricular cavity size. Mild concentric left ventricular hypertrophy. Ejection fraction is visually estimated at 65 %. Tissue Doppler/Mitral Doppler indices are consistent with impaired relaxation (Stage I diastolic dysfunction). 2.Normal right ventricular size. Normal right ventricular systolic function. 3.The left atrium is normal in size. 4.The right atrium is normal in size. 5.Mild mitral valve regurgitation. 6.No significant aortic stenosis or insufficiency. 7.Estimated peak PA systolic pressure 32 mmHg. There is mild tricuspid regurgitation. 8.Normal pericardium with no significant pericardial effusion. Electronically Signed By: Renaldo uGadarrama 06-Oct-2017 18:47:35 -0800 Patient Name: ARTHUR HALE Study Date: 05-Oct-2017 [id number]
[2017-10-06 20:00] VITALS: BP 108/59; RESP 20
[2017-10-06] MEDS ORDERED: ZOLPIDEM 5 MG TAB PO PRN (20:30)
[2017-10-06] MEDS: TAMSULOSIN (SR) 0.4 MG CAP PO SCH (21:14)
[2017-10-06] MEDS: MONTELUKAST 10 MG TAB PO SCH (21:14)
[2017-10-07 02:55] VITALS: BP 121/62; RESP 20
[2017-10-07] MEDS: METHYLPREDNISOLONE 125 MG INJ IV SCH (05:24)
[2017-10-07 07:07] LABS: BASOPHILS % 0.2 % (0.0-2.0); HEMATOCRIT 33.9 % (42.0-52.0); HEMOGLOBIN 11.2 g/dl (14.0-18.0); LYMPHOCYTES # 1.3 10^3/ul (0.8-2.9); LYMPHOCYTES % 7.9 % (15.0-51.0); MEAN CORPUSCULAR HEMOGLOBIN 27.9 pg (29.0-33.0); MEAN CORPUSCULAR VOLUME 84.5 fl (82.0-101.0); MONOCYTE # 0.6 10^3/ul (0.3-0.9); MONOCYTES % 3.3 % (0.0-11.0); NEUTROPHIL # 14.6 10^3/ul (1.6-7.5); NEUTROPHILS % 87.8 % (39.0-77.0); PLATELET COUNT 224 10^3/UL (140-415); RED BLOOD COUNT 4.01 10^6/ul (4.70-6.10); RED CELL DISTRIBUTION WIDTH 13.8 % (11.5-14.5); WHITE BLOOD COUNT 16.6 10^3/ul (4.8-10.8)
[2017-10-07 07:30] LABS: CALCIUM 8.9 mg/dl (8.4-10.2); CREATININE 0.78 mg/dl (0.61-1.24); MAGNESIUM 2.1 mg/dl (1.7-2.5); PHOSPHORUS 3.4 mg/dl (2.5-4.9); POTASSIUM 4.3 mmol/L (3.5-5.1)
[2017-10-07] MEDS: ALBUTEROL/IPRATROPIUM (NEB) 3 ML AMP HHN SCH ×3 (07:53→20:37)
[2017-10-07 08:10] VITALS: BP 107/55; RESP 18
[2017-10-07] MEDS: LEVOFLOXACIN 500MG/D5W (PMX) 100 ML IVPB SCH (09:22)
[2017-10-07] MEDS: SUCRALFATE 1 GM TAB PO SCH ×2 (09:22→21:55)
[2017-10-07] MEDS: ENOXAPARIN 40 MG/0.4 ML SYG SC SCH (09:23)
[2017-10-07] MEDS ORDERED: LACTULOSE 30ML CUP PO ONE (13:00)
[2017-10-07] MEDS ORDERED: POLYETHYLENE GLYCOL 17 GM PACKET PO PRN (13:00)
[2017-10-07 14:10] VITALS: BP 109/55; RESP 18
--- NOTE | 2017-10-07 15:20 | PN ---
Date/Time of Note Date/Time of Note DATE: 10/07/17 TIME: 15:17 Assessment/Plan VTE Prophylaxis VTE Prophylaxis Intervention: SCD's Lines/Catheters IV [facility] Saline Lock Urinary Cath still in place: No Assessment/Plan Chief Complaint/Hosp Course Subjective Patient still has cough, however feeling better Objective Physical exam General: Patient is laying in bed and answers questions appropriately Mentation: Patient is alert and oriented 4, Head: Normocephalic atraumatic Eyes: EOMI, pupils reactive to light Neck: Supple, nontender, midline Respiratory: Coarse to auscultation bilaterally Cardiovascular: regular rate, no obvious murmurs Gastrointestinal: non-tender to palpation, bowel sounds heard. Neurological: Moves all extremities spontaneously Skin: No new skin lesions Assessment and plan Shortness of breath and cough -Likely COPD exacerbation with PNA, given echo findings, unlikely CHF -Antibiotics and duo nebs with steroids -BNP mildly elevated on admission, likely strain given PNA/COPD ex COPD exacerbation -Although might be might multifactorial, COPD exacerbation with patient running out of inhalers likely contributes Nicotine dependence -Nicotine patch as needed Medical noncompliance -Continue home meds as needed Anemia -Mild, monitor for now Disposition -taper steroids -likely DC tomorrow if patient is tolerating off NC Problems: Exam/Review of Systems Vital Signs Vitals Vital Signs Date Time Temp Pulse Resp B/P Pulse Ox O2 Delivery O2 Flow Rate FiO2 10/07/17 14:10 71 18 109/55 92 10/07/17 13:32 Nasal Cannula 3.0 10/07/17 08:10 97.6 10/04/17 20:36 21 Intake and Output 10/06/17 10/06/17 10/07/17 15:00 23:00 07:00 Intake Total 760 ml Output Total 200 ml Balance 560 ml Results Result Diagram: 10/07/17 0557 10/07/17 0557 Results 24 hrs Laboratory Tests Test 10/07/17 05:57 White Blood Count 16.6 H Red Blood Count 4.01 L Hemoglobin 11.2 L Hematocrit 33.9 L Mean Corpuscular Volume 84.5 Mean Corpuscular Hemoglobin 27.9 L Mean Corpuscular Hemoglobin Concent 33.0 Red Cell Distribution Width 13.8 Platelet Count 224 Mean Platelet Volume 11.0 H Neutrophils % 87.8 H Lymphocytes % 7.9 L Monocytes % 3.3 Eosinophils % 0.0 Basophils % 0.2 Nucleated Red Blood Cells % 0.0 Neutrophils # 14.6 H Lymphocytes # 1.3 Monocytes # 0.6 Eosinophils # 0.0 Basophils # 0.0 Nucleated Red Blood Cells # 0.0 Sodium Level 141 Potassium Level 4.3 Chloride Level 105 Carbon Dioxide Level 29 Anion Gap 11 Blood Urea Nitrogen 20 Creatinine 0.78 Glucose Level 135 Calcium Level 8.9 Phosphorus Level 3.4 Magnesium Level 2.1 Medications Medications Current Medications Ondansetron HCl (Zofran Inj) 4 mg Q6H PRN IV NAUSEA AND/OR VOMITING; Start at 06:00 Acetaminophen (Tylenol Tab) 650 mg Q6H PRN PO PAIN LEVEL 1-3 OR FEVER Last administered on 10/07/17 10:26; Admin Dose 650 MG; Start 10/05/17 at 06:00 Morphine Sulfate (morphine) 2 mg Q4H PRN IV SEVERE PAIN LEVEL 7-10; Start at 06:00 Enoxaparin Sodium (Lovenox) 40 mg DAILY SC Last administered on 10/07/17 09: 23; Admin Dose 40 MG; Start 10/05/17 at 09:00 Montelukast Sodium (Singulair) 10 mg QHS PO Last administered on 10/06/17 21: 14; Admin Dose 10 MG; Start 10/05/17 at 21:00 Sucralfate (Carafate) 1 gm BID PO Last administered on 10/07/17 09:22; Admin Dose 1 GM; Start 10/05/17 at 09:00 Tamsulosin HCl 0.4 mg 0.4 mg HS PO Last administered on 10/06/17 21:14; Admin Dose 0.4 MG; Start 10/05/17 at 21:00 Levofloxacin/ Dextrose (Levaquin 500mg/ D5W 100 ml (Pmx)) 100 ml @ 100 mls/hr DAILY IVPB Last administered on 10/07/17 09:22; Admin Dose 100 MLS/HR; Start 10/05/17 at 09:00 Zolpidem Tartrate (Ambien) 10 mg HS PRN PO INSOMNIA Last administered on 21:14; Admin Dose 10 MG; Start 10/06/17 at 20:30 Prednisone (Prednisone) 40 mg DAILY PO ; Start 10/08/17 at 09:00 Polyethylene Glycol (Miralax) 17 gm DAILY PRN PO CONSTIPATION; Start 10/07/17 at 13:00 BRIDGETT MONROY Oct 07, 2017 15:20
[2017-10-07 20:04] VITALS: BP 114/55; RESP 18
[2017-10-07] MEDS: MONTELUKAST 10 MG TAB PO SCH (21:55)
[2017-10-07] MEDS: TAMSULOSIN (SR) 0.4 MG CAP PO SCH (21:55)
[2017-10-08 02:29] VITALS: BP 110/54; RESP 20
[2017-10-08 07:55] VITALS: BP 93/53; RESP 20
[2017-10-08] MEDS ORDERED: predniSONE 20 MG TAB PO SCH (09:00)
[2017-10-08] MEDS: ALBUTEROL/IPRATROPIUM (NEB) 3 ML AMP HHN SCH ×3 (09:03→21:42)
[2017-10-08] MEDS: LEVOFLOXACIN 500MG/D5W (PMX) 100 ML IVPB SCH (09:50)
[2017-10-08] MEDS: SUCRALFATE 1 GM TAB PO SCH ×2 (09:51→20:24)
[2017-10-08] MEDS: ENOXAPARIN 40 MG/0.4 ML SYG SC SCH (10:02)
--- NOTE | 2017-10-08 12:46 | PN ---
Date/Time of Note Date/Time of Note DATE: 10/08/17 TIME: 12:45 Assessment/Plan VTE Prophylaxis VTE Prophylaxis Intervention: ambulation, SCD's Lines/Catheters IV Catheter Type (from Nrsg): Saline Lock Urinary Cath still in place: No Assessment/Plan Chief Complaint/Hosp Course Subjective Patient still has cough, however feeling better. has headache Objective Physical exam General: Patient is laying in bed and answers questions appropriately Mentation: Patient is alert and oriented 4, Head: Normocephalic atraumatic Eyes: EOMI, pupils reactive to light Neck: Supple, nontender, midline Respiratory: Coarse to auscultation bilaterally Cardiovascular: regular rate, no obvious murmurs Gastrointestinal: non-tender to palpation, bowel sounds heard. Neurological: Moves all extremities spontaneously Skin: No new skin lesions Assessment and plan Shortness of breath and cough -Likely COPD exacerbation with PNA, given echo findings, unlikely CHF -Antibiotics and duo nebs with steroids -BNP mildly elevated on admission, likely strain given PNA/COPD ex headache -symptoms are similar to tension headache -will try robaxin for now COPD exacerbation -Although might be might multifactorial, COPD exacerbation with patient running out of inhalers likely contributes Nicotine dependence -Nicotine patch as needed Medical noncompliance -Continue home meds as needed Anemia -Mild, monitor for now Disposition -taper steroids -likely DC tomorrow if patient is tolerating off NC Problems: Exam/Review of Systems Vital Signs Vitals Vital Signs Date Time Temp Pulse Resp B/P Pulse Ox O2 Delivery O2 Flow Rate FiO2 10/08/17 09:00 90 3.0 10/08/17 09:00 62 20 Nasal Cannula 10/08/17 07:55 98.0 93/53 10/04/17 20:36 21 Intake and Output 10/07/17 10/07/17 10/08/17 15:00 23:00 07:00 Intake Total 100 ml 720 ml Balance 100 ml 720 ml Results Result Diagram: 10/07/17 0557 10/07/17 0557 Medications Medications Current Medications Ondansetron HCl (Zofran Inj) 4 mg Q6H PRN IV NAUSEA AND/OR VOMITING; Start at 06:00 Acetaminophen (Tylenol Tab) 650 mg Q6H PRN PO PAIN LEVEL 1-3 OR FEVER Last administered on 10/07/17t 10:26; Admin Dose 650 MG; Start 10/05/17 at 06:00 Morphine Sulfate (morphine) 2 mg Q4H PRN IV SEVERE PAIN LEVEL 7-10; Start at 06:00 Enoxaparin Sodium (Lovenox) 40 mg DAILY SC Last administered on 10/08/17 10: 02; Admin Dose 40 MG; Start 10/05/17 at 09:00 Montelukast Sodium (Singulair) 10 mg QHS PO Last administered on 10/07/17 21: 55; Admin Dose 10 MG; Start 10/05/17 at 21:00 Sucralfate (Carafate) 1 gm BID PO Last administered on 10/08/17 09:51; Admin Dose 1 GM; Start 10/05/17 at 09:00 Tamsulosin HCl 0.4 mg 0.4 mg HS PO Last administered on 10/07/17 21:55; Admin Dose 0.4 MG; Start 10/05/17 at 21:00 Levofloxacin/ Dextrose (Levaquin 500mg/ D5W 100 ml (Pmx)) 100 ml @ 100 mls/hr DAILY IVPB Last administered on 10/08/17 09:50; Admin Dose 100 MLS/HR; Start 10/05/17 at 09:00 Zolpidem Tartrate (Ambien) 10 mg HS PRN PO INSOMNIA Last administered on 21:14; Admin Dose 10 MG; Start 10/06/17 at 20:30 Polyethylene Glycol (Miralax) 17 gm DAILY PRN PO CONSTIPATION; Start 10/07/17 at 13:00 Prednisone (Prednisone) 30 mg DAILY PO ; Start 10/09/17 at 09:00 Methocarbamol (Robaxin) 1,500 mg TID PO ; Start 10/08/17 at 13:00 Salmeterol Xinafoate/ Fluticasone (Advair 250/50 Diskus) 1 inh BID INH ; Start 10/08/17 at 21:00 Trazodone HCl (Desyrel) 50 mg HS PO ; Start 10/08/17 at 21:00 BRIDGETT MONROY Oct 08, 2017 12:46
[2017-10-08 13:29] VITALS: BP 93/54; RESP 20
[2017-10-08] MEDS: METHOCARBAMOL 750 MG TAB PO SCH ×2 (13:40→20:24)
[2017-10-08 20:00] VITALS: BP 95/55; RESP 20
[2017-10-08] MEDS: traZODone 50 MG TAB PO SCH (20:23)
[2017-10-08] MEDS: MONTELUKAST 10 MG TAB PO SCH (20:24)
[2017-10-08] MEDS: TAMSULOSIN (SR) 0.4 MG CAP PO SCH (20:24)
[2017-10-08] MEDS: SALMETEROL/FLUTICASONE 250/50 INHA INH SCH (20:27)
[2017-10-09 02:23] VITALS: BP 91/56; RESP 20
[2017-10-09 02:50] VITALS: BP 93/58
[2017-10-09 06:01] LABS: BASOPHILS % 0.3 % (0.0-2.0); EOSINOPHILS % 0.2 % (0.0-7.0); HEMATOCRIT 36.7 % (42.0-52.0); HEMOGLOBIN 11.9 g/dl (14.0-18.0); LYMPHOCYTES # 3.4 10^3/ul (0.8-2.9); LYMPHOCYTES % 34.1 % (15.0-51.0); MEAN CORPUSCULAR HEMOGLOBIN 27.5 pg (29.0-33.0); MEAN CORPUSCULAR HGB CONC 32.4 g/dl (32.0-37.0); MEAN CORPUSCULAR VOLUME 84.8 fl (82.0-101.0); MEAN PLATELET VOLUME 10.4 fl (7.4-10.4); MONOCYTE # 0.8 10^3/ul (0.3-0.9); MONOCYTES % 7.5 % (0.0-11.0); NEUTROPHIL # 5.5 10^3/ul (1.6-7.5); NEUTROPHILS % 54.8 % (39.0-77.0); PLATELET COUNT 241 10^3/UL (140-415); POSITIVE DIFF @See below; RED BLOOD COUNT 4.33 10^6/ul (4.70-6.10); RED CELL DISTRIBUTION WIDTH 13.7 % (11.5-14.5)
[2017-10-09 06:24] LABS: CALCIUM 8.7 mg/dl (8.4-10.2); CREATININE 0.84 mg/dl (0.61-1.24); MAGNESIUM 2.1 mg/dl (1.7-2.5); PHOSPHORUS 3.7 mg/dl (2.5-4.9); POTASSIUM 4.4 mmol/L (3.5-5.1)
[2017-10-09 07:41] VITALS: BP 83/52; RESP 20
[2017-10-09] MEDS: ALBUTEROL/IPRATROPIUM (NEB) 3 ML AMP HHN SCH ×3 (08:55→19:48)
[2017-10-09] MEDS ORDERED: predniSONE 10 MG TAB PO SCH (09:00)
[2017-10-09] MEDS: METHOCARBAMOL 750 MG TAB PO SCH ×3 (09:28→21:20)
[2017-10-09] MEDS: LEVOFLOXACIN 500MG/D5W (PMX) 100 ML IVPB SCH (09:28)
[2017-10-09] MEDS: SALMETEROL/FLUTICASONE 250/50 INHA INH SCH ×2 (09:28→21:20)
[2017-10-09] MEDS: SUCRALFATE 1 GM TAB PO SCH ×2 (09:28→21:20)
[2017-10-09] MEDS: ENOXAPARIN 40 MG/0.4 ML SYG SC SCH (09:30)
--- NOTE | 2017-10-09 11:52 | PN ---
Date/Time of Note Date/Time of Note DATE: 10/09/17 TIME: 11:51 Assessment/Plan VTE Prophylaxis VTE Prophylaxis Intervention: ambulation, SCD's Lines/Catheters IV Catheter Type (from Nrs): Saline Lock Urinary Cath still in place: No Assessment/Plan Chief Complaint/Hosp Course Subjective Patient still has cough, headache is better Objective Physical exam General: Patient is laying in bed and answers questions appropriately Mentation: Patient is alert and oriented 4, Head: Normocephalic atraumatic Eyes: EOMI, pupils reactive to light Neck: Supple, nontender, midline Respiratory: Coarse to auscultation bilaterally Cardiovascular: regular rate, no obvious murmurs Gastrointestinal: non-tender to palpation, bowel sounds heard. Neurological: Moves all extremities spontaneously Skin: No new skin lesions Assessment and plan Shortness of breath and cough -Likely COPD exacerbation with PNA, given echo findings, unlikely CHF -Antibiotics and duo nebs with steroids -BNP mildly elevated on admission, likely strain given PNA/COPD ex headache -symptoms are similar to tension headache -keep with robaxin for another day COPD exacerbation -Although might be might multifactorial, COPD exacerbation with patient running out of inhalers likely contributes Nicotine dependence -Nicotine patch as needed Medical noncompliance -Continue home meds as needed Anemia -Mild, monitor for now Disposition -taper steroids -still on NC, attempt to taper off today, DC tomorrow if stable Problems: Exam/Review of Systems Vital Signs Vitals Vital Signs Date Time Temp Pulse Resp B/P Pulse Ox O2 Delivery O2 Flow Rate FiO2 10/09/17 08:42 90 3.0 10/09/17 08:42 81 20 Nasal Cannula 10/09/17 07:41 98.2 83/52 Intake and Output 10/08/17 10/08/17 10/09/17 15:00 23:00 07:00 Intake Total 100 ml 840 ml Balance 100 ml 840 ml Results Result Diagram: 10/09/17 0530 10/09/17 0530 Results 24 hrs Laboratory Tests Test 10/09/17 05:30 White Blood Count 10.0 # Red Blood Count 4.33 L Hemoglobin 11.9 L Hematocrit 36.7 L Mean Corpuscular Volume 84.8 Mean Corpuscular Hemoglobin 27.5 L Mean Corpuscular Hemoglobin Concent 32.4 Red Cell Distribution Width 13.7 Platelet Count 241 Mean Platelet Volume 10.4 Neutrophils % 54.8 Lymphocytes % 34.1 Monocytes % 7.5 Eosinophils % 0.2 Basophils % 0.3 Nucleated Red Blood Cells % 0.0 Neutrophils # 5.5 Lymphocytes # 3.4 H Monocytes # 0.8 Eosinophils # 0.0 Basophils # 0.0 Nucleated Red Blood Cells # 0.0 Sodium Level 139 Potassium Level 4.4 Chloride Level 104 Carbon Dioxide Level 30 Anion Gap 9 Blood Urea Nitrogen 17 Creatinine 0.84 Glucose Level 96 Calcium Level 8.7 Phosphorus Level 3.7 Magnesium Level 2.1 Medications Medications Current Medications Ondansetron HCl (Zofran Inj) 4 mg Q6H PRN IV NAUSEA AND/OR VOMITING; Start at 06:00 Acetaminophen (Tylenol Tab) 650 mg Q6H PRN PO PAIN LEVEL 1-3 OR FEVER Last administered on 10/07/17 10:26; Admin Dose 650 MG; Start 10/05/17 at 06:00 Morphine Sulfate (morphine) 2 mg Q4H PRN IV SEVERE PAIN LEVEL 7-10; Start at 06:00 Enoxaparin Sodium (Lovenox) 40 mg DAILY SC Last administered on 10/09/17 09: 30; Admin Dose 40 MG; Start 10/05/17 at 09:00 Montelukast Sodium (Singulair) 10 mg QHS PO Last administered on 10/08/17 20: 24; Admin Dose 10 MG; Start 10/05/17 at 21:00 Sucralfate (Carafate) 1 gm BID PO Last administered on 10/09/17 09:28; Admin Dose 1 GM; Start 10/05/17 at 09:00 Tamsulosin HCl 0.4 mg 0.4 mg HS PO Last administered on 10/08/17 20:24; Admin Dose 0.4 MG; Start 10/05/17 at 21:00 Levofloxacin/ Dextrose (Levaquin 500mg/ D5W 100 ml (Pmx)) 100 ml @ 100 mls/hr DAILY IVPB Last administered on 10/09/17 09:28; Admin Dose 100 MLS/HR; Start 10/05/17 at 09:00 Zolpidem Tartrate (Ambien) 10 mg HS PRN PO INSOMNIA Last administered on 21:14; Admin Dose 10 MG; Start 10/06/17 at 20:30 Polyethylene Glycol (Miralax) 17 gm DAILY PRN PO CONSTIPATION; Start 10/07/17 at 13:00 Methocarbamol (Robaxin) 1,500 mg TID PO Last administered on 10/09/17 09:28; Admin Dose 1,500 MG; Start 10/08/17 at 13:00 Salmeterol Xinafoate/ Fluticasone (Advair 250/50 Diskus) 1 inh BID INH Last administered on 10/09/17 09:28; Admin Dose 1 INH; Start 10/08/17 at 21:00 Trazodone HCl (Desyrel) 50 mg HS PO Last administered on 10/08/17 20:23; Admin Dose 50 MG; Start 10/08/17 at 21:00 Prednisone (Prednisone) 20 mg DAILY PO ; Start 10/10/17 at 09:00 BRIDGETT MONROY Oct 09, 2017 11:52
[2017-10-09 13:38] VITALS: BP 94/54; RESP 20
[2017-10-09 20:30] VITALS: BP 103/50; RESP 22
[2017-10-09] MEDS: MONTELUKAST 10 MG TAB PO SCH (21:20)
[2017-10-09] MEDS: TAMSULOSIN (SR) 0.4 MG CAP PO SCH (21:20)
[2017-10-09] MEDS: traZODone 50 MG TAB PO SCH (21:20)
[2017-10-10 06:23] LABS: ABNORMAL IP MESSAGE 1; BASOPHILS % 0.4 % (0.0-2.0); EOSINOPHILS # 0.3 10^3/ul (0.0-0.5); EOSINOPHILS % 3.2 % (0.0-7.0); HEMATOCRIT 37.2 % (42.0-52.0); HEMOGLOBIN 12.3 g/dl (14.0-18.0); LYMPHOCYTES # 4.1 10^3/ul (0.8-2.9); LYMPHOCYTES % 41.9 % (15.0-51.0); MEAN CORPUSCULAR HEMOGLOBIN 27.9 pg (29.0-33.0); MEAN CORPUSCULAR HGB CONC 33.1 g/dl (32.0-37.0); MEAN CORPUSCULAR VOLUME 84.4 fl (82.0-101.0); MEAN PLATELET VOLUME 10.4 fl (7.4-10.4); MONOCYTE # 0.7 10^3/ul (0.3-0.9); MONOCYTES % 7.1 % (0.0-11.0); NEUTROPHIL # 4.1 10^3/ul (1.6-7.5); NEUTROPHILS % 42.1 % (39.0-77.0); PLATELET COUNT 262 10^3/UL (140-415); POSITIVE DIFF @See below; RED BLOOD COUNT 4.41 10^6/ul (4.70-6.10); RED CELL DISTRIBUTION WIDTH 13.8 % (11.5-14.5); WHITE BLOOD COUNT 9.8 10^3/ul (4.8-10.8)
[2017-10-10 07:06] LABS: CREATININE 0.92 mg/dl (0.61-1.24); MAGNESIUM 2.1 mg/dl (1.7-2.5); POTASSIUM 4.3 mmol/L (3.5-5.1)
[2017-10-10] MEDS: ALBUTEROL/IPRATROPIUM (NEB) 3 ML AMP HHN SCH ×2 (07:36→14:30)
[2017-10-10 08:00] VITALS: BP 112/56; PULSE 63; RESP 20
[2017-10-10] MEDS ORDERED: predniSONE 20 MG TAB PO SCH (09:00)
[2017-10-10] MEDS: LEVOFLOXACIN 500MG/D5W (PMX) 100 ML IVPB SCH (09:04)
[2017-10-10] MEDS: METHOCARBAMOL 750 MG TAB PO SCH ×3 (09:04→21:06)
[2017-10-10] MEDS: SUCRALFATE 1 GM TAB PO SCH ×2 (09:05→21:06)
[2017-10-10] MEDS: SALMETEROL/FLUTICASONE 250/50 INHA INH SCH ×2 (09:05→21:06)
[2017-10-10] MEDS: ENOXAPARIN 40 MG/0.4 ML SYG SC SCH (09:16)
[2017-10-10 14:00] VITALS: BP 99/57; PULSE 77; RESP 20
[2017-10-10] MEDS ORDERED: PROMETHAZINE/CODEINE 5ML CUP PO PRN (17:30)
--- NOTE | 2017-10-10 17:36 | PN ---
Date/Time of Note Date/Time of Note DATE: 10/10/17 TIME: 17:35 Assessment/Plan VTE Prophylaxis VTE Prophylaxis Intervention: LMWH Lines/Catheters IV [facility] Saline Lock Urinary Cath still in place: No Assessment/Plan Chief Complaint/Hosp Course Subjective: No events Objective: Vital signs stable Physical exam No pallor adenopathy JVD S1-S2 regular no murmur rub gallop Clear bilaterally Bowel sounds present nontender nondistended no RR G No edema Assessment and plan 1. Acute COPD exacerbation due to bilateral lower lobe pneumonia likely streptococcal. Stable finish Levaquin 2. Acute bilateral community-acquired pneumonia 3. Chronic tobacco 4. Medication nonadherence 5. History of BPH 6. Height headache 7. Anemia 8. History of hemithorax? Problems: Exam/Review of Systems Vital Signs Vitals Vital Signs Date Time Temp Pulse Resp B/P Pulse Ox O2 Delivery O2 Flow Rate FiO2 10/10/17 14:30 87 18 95 21 10/10/17 14:00 97.9 99/57 Room Air 10/09/17 08:42 3.0 Intake and Output 10/09/17 10/09/17 10/10/17 15:00 23:00 07:00 Intake Total 900 ml 1200 ml 650 ml Output Total 0 ml Balance 900 ml 1200 ml 650 ml Results Result Diagram: 10/10/1751810/10/17 0519 Results 24 hrs Laboratory Tests Test 10/10/17 05:19 White Blood Count 9.8 Red Blood Count 4.41 L Hemoglobin 12.3 L Hematocrit 37.2 L Mean Corpuscular Volume 84.4 Mean Corpuscular Hemoglobin 27.9 L Mean Corpuscular Hemoglobin Concent 33.1 Red Cell Distribution Width 13.8 Platelet Count 262 Mean Platelet Volume 10.4 Neutrophils % 42.1 Lymphocytes % 41.9 Monocytes % 7.1 Eosinophils % 3.2 Basophils % 0.4 Nucleated Red Blood Cells % 0.0 Neutrophils # 4.1 Lymphocytes # 4.1 H Monocytes # 0.7 Eosinophils # 0.3 Basophils # 0.0 Nucleated Red Blood Cells # 0.0 Sodium Level 139 Potassium Level 4.3 Chloride Level 104 Carbon Dioxide Level 29 Anion Gap 10 Blood Urea Nitrogen 17 Creatinine 0.92 Glucose Level 81 Calcium Level 9.0 Phosphorus Level 4.0 Magnesium Level 2.1 Medications Medications Current Medications Ondansetron HCl (Zofran Inj) 4 mg Q6H PRN IV NAUSEA AND/OR VOMITING; Start at 06:00 Acetaminophen (Tylenol Tab) 650 mg Q6H PRN PO PAIN LEVEL 1-3 OR FEVER Last administered on 10/07/17 10:26; Admin Dose 650 MG; Start 10/05/17 at 06:00 Morphine Sulfate (morphine) 2 mg Q4H PRN IV SEVERE PAIN LEVEL 7-10; Start at 06:00 Enoxaparin Sodium (Lovenox) 40 mg DAILY SC Last administered on 10/10/17 09: 16; Admin Dose 40 MG; Start 10/05/17 at 09:00 Montelukast Sodium (Singulair) 10 mg QHS PO Last administered on 10/09/17 21: 20; Admin Dose 10 MG; Start 10/05/17 at 21:00 Sucralfate (Carafate) 1 gm BID PO Last administered on 10/10/17 09:05; Admin Dose 1 GM; Start 10/05/17 at 09:00 Tamsulosin HCl (Flomax) 0.4 mg HS PO Last administered on 10/09/17 21:20; Admin Dose 0.4 MG; Start 10/05/17 at 21:00 Zolpidem Tartrate (Ambien) 10 mg HS PRN PO INSOMNIA Last administered on 21:14; Admin Dose 10 MG; Start 10/06/17 at 20:30 Polyethylene Glycol (Miralax) 17 gm DAILY PRN PO CONSTIPATION; Start 10/07/17 at 13:00 Methocarbamol (Robaxin) 1,500 mg TID PO Last administered on 10/10/17 13:55; Admin Dose 1,500 MG; Start 10/08/17 at 13:00 Salmeterol Xinafoate/ Fluticasone (Advair 250/50 Diskus) 1 inh BID INH Last administered on 10/10/17 09:05; Admin Dose 1 INH; Start 10/08/17 at 21:00 Trazodone HCl (Desyrel) 50 mg HS PO Last administered on 10/09/17 21:20; Admin Dose 50 MG; Start 10/08/17 at 21:00 Albuterol/ Ipratropium (Duoneb) 3 ml Q8 HHN ; Start 10/10/17 at 22:00; Status UNV Prednisone (Prednisone) 60 mg DAILY PO ; Start 10/11/17 at 09:00; Status UNV Levofloxacin (Levaquin) 750 mg DAILY@06 PO ; Start 10/11/17 at 06:00; Status UNV Promethazine HCl/ Codeine (Phenergan/ Codeine) 10 ml Q4H PRN PO COUGH; Start 10/10/17 at 17:30; Status UNV TASHA MACIEL MD Oct 10, 2017 17:36
[2017-10-10] MEDS ORDERED: NICOTINE (14 MG/24 HR) PATCH TRANSDERM PRN (18:00)
[2017-10-10 20:22] VITALS: BP 101/55; RESP 20
[2017-10-10] MEDS: MONTELUKAST 10 MG TAB PO SCH (21:06)
[2017-10-10] MEDS: traZODone 50 MG TAB PO SCH (21:06)
[2017-10-10] MEDS: TAMSULOSIN (SR) 0.4 MG CAP PO SCH (21:06)
[2017-10-10] MEDS ORDERED: ALBUTEROL/IPRATROPIUM (NEB) 3 ML AMP HHN SCH (22:00)
[2017-10-11] MEDS: ALBUTEROL/IPRATROPIUM (NEB) 3 ML AMP HHN SCH ×3 (00:18→15:05)
[2017-10-11 01:17] VITALS: BP 112/55; RESP 18
[2017-10-11] MEDS ORDERED: LEVOFLOXACIN 750 MG TABLET PO SCH (06:00)
[2017-10-11 06:32] LABS: BASOPHILS % 0.4 % (0.0-2.0); EOSINOPHILS # 0.2 10^3/ul (0.0-0.5); EOSINOPHILS % 2.1 % (0.0-7.0); HEMOGLOBIN 12.6 g/dl (14.0-18.0); LYMPHOCYTES # 3.5 10^3/ul (0.8-2.9); MEAN CORPUSCULAR HEMOGLOBIN 27.6 pg (29.0-33.0); MEAN CORPUSCULAR HGB CONC 33.2 g/dl (32.0-37.0); MEAN CORPUSCULAR VOLUME 83.3 fl (82.0-101.0); MEAN PLATELET VOLUME 10.2 fl (7.4-10.4); MONOCYTE # 0.8 10^3/ul (0.3-0.9); MONOCYTES % 7.9 % (0.0-11.0); NEUTROPHIL # 5.1 10^3/ul (1.6-7.5); NEUTROPHILS % 50.6 % (39.0-77.0); PLATELET COUNT 327 10^3/UL (140-415); RED BLOOD COUNT 4.56 10^6/ul (4.70-6.10); RED CELL DISTRIBUTION WIDTH 13.8 % (11.5-14.5)
[2017-10-11 07:53] VITALS: BP 100/56; RESP 20
[2017-10-11] MEDS: SALMETEROL/FLUTICASONE 250/50 INHA INH SCH (08:29)
[2017-10-11] MEDS: SUCRALFATE 1 GM TAB PO SCH (08:29)
[2017-10-11] MEDS: METHOCARBAMOL 750 MG TAB PO SCH ×2 (08:29→13:01)
[2017-10-11] MEDS: ENOXAPARIN 40 MG/0.4 ML SYG SC SCH (08:35)
[2017-10-11 08:47] LABS: CALCIUM 9.3 mg/dl (8.4-10.2); CREATININE 0.93 mg/dl (0.61-1.24); MAGNESIUM 2.1 mg/dl (1.7-2.5); POTASSIUM 4.3 mmol/L (3.5-5.1)
[2017-10-11] MEDS ORDERED: predniSONE 20 MG TAB PO SCH (09:00)
[2017-10-11 09:21] LABS: THYROID STIMULATING HORMONE 1.42 MIU/L (0.465-4.680)
--- NOTE | 2017-10-11 13:01 | PDOCDIS ---
Discharge Instructions DIAGNOSIS Discharge Diagnosis COPD/ Pneumonia CONDITION Patient Condition: Good HOME CARE INSTRUCTIONS: Special Diet: regular ACTIVITY: Activity Restrictions: Slowly Increase Activity FOLLOW UP/APPOINTMENTS Follow-up Plan PCP 1wTASHA Wilkins MD Oct 11, 2017 13:01
[2017-10-11] MEDS ORDERED: ACET325T33 PO (13:08)
[2017-10-11] MEDS ORDERED: Nicotine (14 Mg/24 Hr) TRANSDERM (13:08)
[2017-10-11] MEDS ORDERED: Promethazine/Codeine Syp PO (13:08)
[2017-10-11] MEDS ORDERED: PRED20TA PO (13:08)
[2017-10-11] MEDS ORDERED: ADV25050 INH (13:08)
[2017-10-11] MEDS ORDERED: LEVO750T25 PO (13:08)
[2017-10-11] MEDS ORDERED: ALBU18HF INHALATION (13:08)
--- NOTE | 2017-10-11 13:16 | DS ---
Date/Time of Note Date/Time of Note DATE: 10/11/17 TIME: 13:15 Discharge Summary Admission/Discharge Info Admit Date/Time Oct 05, 2017 at 00:11 Discharge Date/Time Discharge Diagnosis COPD/ Pneumonia Patient Condition: Good Procedures Chest x-ray. Echo: Conclusions 1. Normal left ventricular systolic function. Normal left ventricular cavity size. Mild concentric left ventricular hypertrophy. Ejection fraction is visually estimated at 65 %. Tissue Doppler/Mitral Doppler indices are consistent with impaired relaxation (Stage I diastolic dysfunction). 2. Normal right ventricular size. Normal right ventricular systolic function. 3. The left atrium is normal in size. 4. The right atrium is normal in size. 5. Mild mitral valve regurgitation. 6. No significant aortic stenosis or insufficiency. 7. Estimated peak PA systolic pressure 32 mmHg. There is mild tricuspid regurgitation. 8. Normal pericardium with no significant pericardial effusion. Electronically Signed By: Renaldo Guadarrama 06-Oct-2017 18:47:35 -0800 Patient Name: ARTHUR HALE Hx of Present Illness 67-year-old smoker admitted with shortness of breath. X-ray concerning for pneumonia. He is Hospital Course Subjective: 10/10 no events /: No distress eating ambulating no fever. Objective: Vital signs stable Physical exam No pallor JVD S1-S2 regular no murmur rub gallop Clear bilaterally Bowel sounds present nontender nondistended no RRG No edema Assessment and plan 1. Acute COPD exacerbation due to bilateral lower lobe pneumonia likely streptococcal. Stable finish Levaquin. Discharge home. -Consider repeat follow-up chest x-ray in 2 weeks 2. Acute bilateral community-acquired pneumonia and consider outpatient PFTs 3. Chronic tobacco: Counseling offered patch 4. Medication nonadherence 5. History of BPH 6. Height headache 7. Anemia 8. History of hemithorax? Home Meds Active Scripts Albuterol Sulfate* (Ventolin HFA*) 18 Gm Hfa.aer.ad, 2 PUFF INHALATION Q4H Y for SHORTNESS OF BREATH, #1 INHALER 3 Refills Prov:TASHA MACIEL MD 10/11/17 Prednisone* (Prednisone*) 20 Mg Tab, 60 MG PO DAILY for 3 Days, #3 TAB Prov:TASHA MACIEL MD 10/11/17 Salmeterol Xinaf/Fluticasone* (Advair*) 250-50 Diskus Inhaler, 1 INH INH BID for 10 Days, #10 Prov:TASHA MACIEL MD 10/11/17 [Promethazine/Codeine Syp] 5 ML SYRUP No Conflict Check, 10 ML PO Q4H Y for COUGH for 7 Days, #10 Prov:TASHA MACIEL MD 10/11/17 Acetaminophen* (Tylenol*) 325 Mg Tablet, 650 MG PO Q6H Y for PAIN LEVEL 1-3 OR FEVER for 1 Day, #1 TAB Prov:TASHA MACIEL MD 10/11/17 [Nicotine (14 Mg/24 Hr)] 1 PATCH PATCH No Conflict Check, 1 PATCH TRANSDERM Q24H Y for CONTROL WITHDRAWAL SYMPTOMS for 10 Days, #10 OTC Prov:TASHA MACIEL MD 10/11/17 Levofloxacin* (Levaquin*) 750 Mg Tablet, 750 MG PO DAILY@06 for 4 Days, #4 TAB Prov:TASHA MACIEL MD 10/11/17 Tamsulosin Hcl* (Flomax*) 0.4 Mg Capsr, 0.4 MG PO HS, #30 CAP Prov:ARA CHAN 12/16/15 Reported Medications Fluticasone-Vilanterol (Breo Ellipta Inhaler) 100-25 Mcg/Actuation Aer.pow.ba, 1 PUFF INHALATION DAILY, #1 INHALER 10/04/17 Montelukast Sodium* (Montelukast Sodium*) 10 Mg Tablet, 10 MG PO QHS, #30 TAB 10/04/17 Sucralfate* (Carafate*) 1 Gm Tab, 1 GM PO BID, TAB 10/04/17 Discontinued Reported Medications Aspirin* (Aspirin* Chew) 81 Mg Tab.chew, 81 MG PO DAILY, TAB.CHEW 12/10/15 Omeprazole* (Omeprazole*) 20 Mg Capsule.dr, 20 MG PO DAILY, #30 CAP 12/10/15 Albuterol Sulfate* (Proair HFA*) 8.5 Gm Hfa.aer.ad, 2 PUFF INH Q4H Y for WHEEZING AND SOB, #1 INHALER 12/10/15 Discontinued Scripts Hydroxyzine Hcl* (Hydroxyzine Hcl*) 25 Mg Tablet, 25 MG PO Q8H Y for ITCHING, # 30 TAB Prov:JESSE GALVAN JOSE Fitzgerald [employer] 04/04/17 Triamcinolone Acetonide (Triamcinolone Acetonide) 0.1% - 60 Ml Lotion, 1 APPLIC TOP BID, #1 BOTTLE Prov:JESSE GALVAN Amilcar [employer] 04/04/17 Levofloxacin* (Levaquin*) 500 Mg Tablet, 500 MG PO DAILY, #5 TAB Prov:ARA CHAN 12/16/15 Nicotine* (Nicoderm* Patch) 1 Patch Patch, 1 PATCH TRANSDERM DAILY for 30 Days, PATCH Prov:ARA CHAN 12/16/15 Fluconazole* (Diflucan*) 200 Mg Tab, 200 MG PO DAILY, #7 TAB Prov:ARA CHAN 12/16/15 Follow-up Plan PCP 1wk Primary Care Provider Not On Staff Doctor Time spent on discharge: < 30 minutes Pending Labs Laboratory Tests Test 10/11/17 05:04 10/11/17 05:05 Sodium Level 137mmol/L (135-144) Potassium Level 4.3mmol/L (3.5-5.1) Chloride Level 100mmol/L (97-110) Carbon Dioxide Level 28mmol/L (21-31) Anion Gap 13 (8-16) Blood Urea Nitrogen 16mg/dl (7-20) Creatinine 0.93mg/dl (0.61-1.24) Glucose Level 94mg/dl (70-220) Calcium Level 9.3mg/dl (8.4-10.2) Phosphorus Level 4.0mg/dl (2.5-4.9) Magnesium Level 2.1mg/dl (1.7-2.5) Thyroid Stimulating Hormone (TSH) 1.420MIU/L (0.465-4.680) White Blood Count 10.010^3/ul (4.8-10.8) Red Blood Count 4.5610^6/ul (4.70-6.10) Hemoglobin 12.6g/dl (14.0-18.0) Hematocrit 38.0% (42.0-52.0) Mean Corpuscular Volume 83.3fl (82.0-101.0) Mean Corpuscular Hemoglobin 27.6pg (29.0-33.0) Mean Corpuscular Hemoglobin Concent 33.2g/dl (32.0-37.0) Red Cell Distribution Width 13.8% (11.5-14.5) Platelet Count 51787^3/UL (140-415) Mean Platelet Volume 10.2fl (7.4-10.4) Neutrophils % 50.6% (39.0-77.0) Lymphocytes % 35.0% (15.0-51.0) Monocytes % 7.9% (0.0-11.0) Eosinophils % 2.1% (0.0-7.0) Basophils % 0.4% (0.0-2.0) Nucleated Red Blood Cells % 0.0/100WBC (0.0-0.0) Neutrophils # 5.110^3/ul (1.6-7.5) Lymphocytes # 3.510^3/ul (0.8-2.9) Monocytes # 0.810^3/ul (0.3-0.9) Eosinophils # 0.210^3/ul (0.0-0.5) Basophils # 0.010^3/ul (0.0-0.1) Nucleated Red Blood Cells # 0.010^3/ul (0.0-0.0) TASHA MACIEL MD Oct 11, 2017 13:16
[2017-10-11 14:28] VITALS: BP 99/56; RESP 20
== END 2017-10-11 15:35 | disposition home or self-care (01) | DRG 190 ==
LOC: E/R 15:39 → MS3 10-05 00:11 → MS2 10-06 18:20
PROVIDERS: ADMIT Internal Medicine; ATTEND Internal Medicine
DX: J44.1 Chronic obstructive pulmonary disease with (acute) exacerbation (principal); J15.4 Pneumonia due to other streptococci; J44.0 Chronic obstructive pulmonary disease with (acute) lower respiratory infection; D64.9 Anemia, unspecified; F17.210 Nicotine dependence, cigarettes, uncomplicated; Z87.891 Personal history of nicotine dependence; Z91.19 Patient's noncompliance with other medical treatment and regimen; N40.0 Benign prostatic hyperplasia without lower urinary tract symptoms; R51 Headache
CPT/HCPCS: 36415; 71010; 71020; 80048; 80053; 83036; 83735; 83880; 84100; 84443; 84484; 85025; 85610; 85730; 87400; 93005; 93306; 94640; 94644; 96372; 96374; 96375; 96376; J1940; J1650; J1956; J2930; J7030; J7512

== ENCOUNTER 2018-01-29 21:57 | Emergency (ER) | END 2018-01-30 00:59 | disposition home or self-care (01) ==